=== PATIENT | male | born 1965 | race Caucasian/White ===

== ENCOUNTER 2018-10-18 07:07 | Outpatient (CLI) | payer BC, SELFPAY ==
[2018-10-18 08:58] LABS: Cholesterol 163 mg/dL (50-200); Glucose 99 mg/dL (70-100); HDL Cholesterol 35 mg/dL (40-60); LDL CHOLESTEROL 117 mg/dL (<100); Triglyceride 55 mg/dL (30-150)
== END 2018-10-18 07:27 ==
PROVIDERS: PCP General Practice; Visit Provider General Practice
DX: Z00.00 Encounter for general adult medical examination without abnormal findings (principal); Z13.220 Encounter for screening for lipoid disorders; Z13.1 Encounter for screening for diabetes mellitus
CPT/HCPCS: 36415; 80061; 82947; 83721

== ENCOUNTER 2018-11-28 00:45 | Outpatient (CLI) | payer BC, SELFPAY ==
--- NOTE | 2018-11-28 10:30 | MERGE_ITS ---
*[facility]* *[facility]* [address] [place] [address] Date of study: 11/28/2018 Transthoracic Echocardiography M-mode, complete 2D, complete spectral Doppler, and color Doppler *STUDY CONCLUSIONS* Summary: 1. Left ventricle: The cavity size was normal. The estimated ejection fraction was 60%. Diastolic parameters were normal. There was no evidence of elevated ventricular filling pressure by Doppler parameters. 2. Aortic valve: There was mild regurgitation. 3. Mitral valve: There was mild regurgitation. 4. Right ventricle: The cavity size was normal. Wall thickness was normal. Systolic function was normal. 5. Right atrium: The atrium was mildly dilated. 6. Atrial septum: No defect or patent foramen ovale was identified. 7. Pulmonary arteries: Pulmonary systolic pressure was in the range of 15mm Hg to 25mm Hg. 8. Inferior vena cava: The vessel was normal in size. The respirophasic diameter changes were in the normal range (greater than or equal to 50%), consistent with normal central venous pressure. *PATIENT PRESENTATION* Height: 175.3cm ((69in) ) S/D Pressure: 127 / 79 Weight: 83kg ((182.6lb) ) BSA: 2.03m^2 Test start time: 10:35 AM. Test stop time: 11:30 AM. ORDERING Merlin Oakley REFERRING Merlin Oakley PERFORMING Unknown PERFORMING [facility] [employer] RT Johnathan VerasR)(MARLEN)YOHAN *PROCEDURE DATA* Procedure information: The patient was identified by two identifiers. This study was interpreted by [facility]. Pertinent images and digital data are archived for permanent storage and are available for subsequent review. No prior study was available for comparison. Study status: Routine. Transthoracic echocardiography. M-mode, complete 2D, complete spectral Doppler, and color Doppler. A Transthoracic Echocardiogram was performed. Scanning was performed from the parasternal, apical, subcostal, and suprasternal notch acoustic windows. Images were obtained using an [id number] cardiac ultrasound machine. Image quality was adequate. Study completion: The patient tolerated the procedure well. History: PMH: LVH by echo 10/02. *CARDIAC ANATOMY* Left ventricle: The cavity size was normal. The estimated ejection fraction was 60%. The tissue Doppler parameters were normal. Diastolic parameters were normal. There was no evidence of elevated ventricular filling pressure by Doppler parameters. Aortic valve: Trileaflet. Doppler: There was no stenosis. There was mild regurgitation. VTI ratio of LVOT to aortic valve: 0.53. Valve area (VTI): 2cm^2. Indexed valve area (VTI): 1cm^2/m^2. Peak velocity ratio of LVOT to aortic valve: 0.52. Valve area (Vmax): 1.9cm^2. Indexed valve area (Vmax): 1cm^2/m^2. Mean velocity ratio of LVOT to aortic valve: 0.55. Valve area (Vmean): 2cm^2. Indexed valve area (Vmean): 1cm^2/m^2. Mean gradient (S): 9.1mm Hg. Peak gradient (S): 16.2mm Hg. Aorta: Aortic root: The aortic root was normal in size. Ascending aorta: The ascending aorta was normal in size. Mitral valve: Doppler: There was no evidence for stenosis. There was mild regurgitation. Valve area by pressure half-time: 3.8cm^2. Indexed valve area by pressure half-time: 1.9cm^2/m^2. Left atrium: The atrium was normal in size. Atrial septum: No defect or patent foramen ovale was identified. Right ventricle: The cavity size was normal. Wall thickness was normal. Systolic function was normal. Pulmonic valve: Doppler: There was no evidence for stenosis. There was mild regurgitation. Peak gradient (S): 4.2mm Hg. Tricuspid valve: Doppler: There was mild regurgitation. Pulmonary artery: Poorly visualized. Pulmonary systolic pressure was in the range of 15mm Hg to 25mm Hg. Right atrium: The atrium was mildly dilated. Pericardium: There was no pericardial effusion. Systemic veins: Inferior vena cava: The vessel was normal in size. The respirophasic diameter changes were in the normal range (greater than or equal to 50%), consistent with normal central venous pressure. Measurements Left ventricle Value Reference LV ID, ED, PLAX 4.9 cm 3.5 - 6.0 LV ID, ES, PLAX 3.7 cm 2.1 - 4.0 LV PW thickness, ED, PLAX 1.0 cm LV end-diastolic volume, 1-p A2C 109 ml LV ejection fraction, 1-p A2C 49 % LV end-diastolic volume, 1-p A4C 113 ml LV ejection fraction, 1-p A4C 48 % LV e', lateral 0.119 m/sec LV E/e', lateral 5 LV e', medial 0.102 m/sec LV E/e', medial 6 LV e', average 0.111 m/sec LV E/e', average 6 Ventricular septum Value Reference IVS thickness, ED, PLAX 1.1 cm LVOT Value Reference LVOT ID, A-P 2.2 cm LVOT area 3.7 cm^2 LVOT peak velocity, S 1.06 m/sec LVOT mean velocity, S 0.79 m/sec LVOT VTI, S 22.9 cm LVOT peak gradient, S 4.5 mm Hg LVOT mean gradient, S 2.8 mm Hg Stroke volume (SV), LVOT DP 84 ml Stroke index (SV/bsa), LVOT DP 42 ml/m^2 Aortic valve Value Reference Aortic valve peak velocity, S 2 m/sec Aortic valve mean velocity, S 1.44 m/sec Aortic valve VTI, S 43.0 cm Aortic mean gradient, S 9.1 mm Hg Aortic peak gradient, S 16.2 mm Hg VTI ratio, LVOT/AV 0.53 Aortic valve area, VTI 2 cm^2 Velocity ratio, peak, LVOT/AV 0.52 Aortic valve area, peak velocity 1.9 cm^2 Velocity ratio, mean, LVOT/AV 0.55 Aortic valve area, mean velocity 2 cm^2 Aortic valve area/bsa, mean velocity 1 cm^2/m^2 Aorta Value Reference Aortic root ID, ED 2.9 cm Ascending aorta ID, A-P, S 2.8 cm Left atrium Value Reference LA ID, A-P, ES 3.2 cm LA ID/bsa, A-P 1.6 cm/m^2 <=2.2 LA area, ES, A4C 18.6 cm^2 8.8 - 23.4 LA area, ES, A2C 19 cm^2 LA volume, ES, 2-p 53 ml LA volume/bsa, ES, 2-p 26 ml/m^2 LA/aortic root ratio 1.1 Mitral valve Value Reference Mitral E-wave peak velocity 0.64 m/sec Mitral A-wave peak velocity 0.7 m/sec Mitral deceleration time 201 ms 150 - 230 Mitral pressure half-time 58 ms Mitral E/A ratio, peak 0.91 Mitral valve area, PHT, DP 3.8 cm^2 Pulmonary veins Value Reference Pulmonary vein peak velocity, S 0.51 m/sec Pulmonary vein peak velocity, D 0.39 m/sec Pulmonary vein velocity ratio, peak, 1.3 S/D Pulmonary vein A-wave reversal peak 0.32 m/sec velocity Tricuspid valve Value Reference Tricuspid regurg peak velocity 2.2 m/sec Tricuspid peak RV-RA gradient 18.9 mm Hg Right atrium Value Reference RA area, ES, A4C (H) 19.7 cm^2 8.3 - 19.5 Pulmonic valve Value Reference Pulmonic peak gradient, S 4.2 mm Hg Legend: (L) and (H) jalil values outside specified reference range. I have personally reviewed the images and have reviewed and edited the reported findings. Electronically signed by Axel Desai MD 11/28/2018 16:48
== END 2018-11-28 01:05 ==
PROVIDERS: PCP General Practice; Visit Provider General Practice
DX: I08.0 Rheumatic disorders of both mitral and aortic valves; I51.7 Cardiomegaly
CPT/HCPCS: 93306

== ENCOUNTER 2019-01-30 07:06 | Day surgery (SDC) | payer BC, SELFPAY ==
--- NOTE | 2019-01-30 06:38 | W.COLOREPORT ---
Date of service: 01/30/19 Time of Service: 09:12 Colonoscopy Report Date of procedure: 01/30/19 Pre-op diagnosis general: Colon Cancer Screening Post-op diagnosis procedure note: other (Descending colon polyp) Procedure: Colonoscopy with polypectomy by cold forceps Surgeon: Verónica Harmon Anesthesia proc note operative: other (General/ ASA 1/Tawnya Navarro CRNA ) Estimated blood loss (mL): 3 Pathology: other (descending polyp) Complications: None Disposition: same day Indications: Mr. Godwin is a pleasant 53 year old male seen in the office for a screening colonoscopy. This will be his first colonoscopy. He has no family history of colon cancer. Risks, benefits and complications have been reviewed. Complications include but are not limited to bleeding, pain, perforation, missed small lesion/polyp, sore throat, aspiration and adverse reaction to the medications. Questions were entertained and answered to their satisfaction and they wished to proceed. No guarantees were given or implied. Prep: Miralax/Dulcolax Procedure Start Time: 09:12 Procedure End Time: :46 Retraction Time: 20 minutes Findings: One small < 1 cm polyp removed with forceps Procedure Description: After informed consent was obtained the patient was taken to the procedure room and placed in a left decubitous position. Monitors were applied and a time out was done. The patients name, date of , procedure, allergies to medications and metal in their body was reviewed. The patient was then sedated. Once sedated and comfortable a rectal exam was done. External exam was normal. Internal exam revealed a normal sphincter tone and no palpable masses. The prostate felt smooth. The scope was then introduced and retro-flexed. No internal hemorrhoids were identified, no masses or polyps. The scope was then advanced to the cecum with some difficulty. The patient kept bradying down into the 20's and had to be given Robinol. The colon was also tortuous. The TI and appendiceal orifice were identified. The prep was good. The scope was then slowly retracted over 20 minutes back into the rectum. Polyps were removed in the descending colon with a cold forceps. The scope was removed and the patient was woken up and taken back to Same day surgery in stable condition. The patient tolerated the procedure well and there were no immediate complications. Follow up: The patient should follow up in 3-5 years unless they develop changes in bowel habits or other new gastrointestinal complaints.
--- NOTE | 2019-01-30 06:40 | W.PM.DSUDISC ---
Discharge Plan Disposition Patient Disposition: HOME Condition: Good Discharge Details Reason For Visit: Colon CAncer Screening Attending Provider: Verónica Harmon Primary Care Provider: Merlin Oakley Home Meds and New Rx's Prescriptions: Continued multivitamin [One Daily Multivitamin] Tablet 1 tab PO DAILY RF: 0 Discontinued polyethylene glycol 3350 17 gram/dose powder 238 g PO ONCE Qty: 238 RF: 0 bisacodyl [Dulcolax (bisacodyl)] 5 mg tablet,delayed release (DR/EC) 5 mg PO ONCE Qty: 4 RF: 0 Discharge Instructions Instructions: Colonoscopy (DC), Colorectal Polyps (DC) Additional Instructions: Findings: one polyp Follow up: 3-5 years Please call if you develop: fevers >101.5 Nausea or Vomiting Abdominal pain that is not transient DAY SURGERY UNIT POST COLONOSCOPY INSTRUCTIONS 1. Because there will be medication in your system for the next 24 hours, you may feel a little sleepy. Your coordination will be affected. Therefore: a. Do not drive or operate dangerous equipment for 24 hours. b. Do not drink alcohol beverages for 24 hours (not even beer). c. Plan to go home and rest for the day. 2. Generally there are no restrictions on your activity after a day or so has gone by, but you may feel a bit fatigued for a few days. 3 After you arrive home you may have a light meal and return to a normal diet as you can tolerate it without feeling sick to your stomach. 4. After surgery, you may feel pain or discomfort. This should be only transient, but if it persists please contact your doctor. 5. If there are any questions regarding the findings of your procedure, please feel free to contact your doctor. 6. If you are unable to contact your doctor with a problem, contact the hospital at [phone]. 7. Continue all your regular medications unless directed otherwise. I understand the above instructions and have no questions. Signature of Patient or Responsible Adult Escort Date/Time Name of Responsible Adult Escort Signature of Nurse Date/Time Activity:: Activity as Tolerated Diet:: As Tolerated Discharge Orders Discharge Orders: Discharge Order (Routine); Ordered 01/30/19 Ordered By: Verónica Harmon DS: Diagnosis Discharge Diagnosis (1) S/P colonoscopy: Status: Acute (2) Colorectal polyp detected on colonoscopy: Status: Acute
[2019-01-30 07:19] VITALS: BP 129/85; PULSE 60; RESP 14; TEMP 34.8; O2SAT 14
--- NOTE | 2019-01-30 07:37 | BOWEL_PTH ---
PATIENT: Rogers Godwin LOC: [facility] U#:[id number] AGE/SX: 53/M ROOM: RE01/30/[address]: Verónica Harmon MD : [id number] BED: DIS: 01/30/2019 SPEC #: [id number] RECD: 01/30/19 12:54 STATUS: CHRIS REQ #: [id number] KEO: 01/30/19 07:[address]: Verónica Harmon DEPT: Surgical Specimen RECD BY: Yokasta Carty ENTERED: 01/30/19 12:55 SP TYPE: Bowel OTHR DR: Merlin Oakley Tissues: 1 - BIOPSY BOWEL Procedures: GROSS AND MICRO LEVEL 4 Comments: [id number]
[2019-01-30] MEDS: Lactated Ringers 1,000 ML 80 ML IV (07:57)
[2019-01-30 12:16] VITALS: BP 114/74; PULSE 61; RESP 14; TEMP 35.4; O2SAT 100
== END 2019-01-30 11:30 | disposition home or self-care (01) ==
LOC: SUR 07:07
PROVIDERS: PCP General Practice; Visit Provider Surgery
PROC: 0DJD8ZZ Inspection of Lower Intestinal Tract, Via Natural or Artificial Opening Endoscopic (ICD-10-PCS; CPT 45378; principal; 2019-01-30 08:30)
DX: Z12.11 Encounter for screening for malignant neoplasm of colon (principal); K63.5 Polyp of colon
CPT/HCPCS: 45380; 88305

== ENCOUNTER 2023-05-27 01:15 | Outpatient (CLI) | payer BC, SELFPAY ==
--- OUTSIDE RECORDS SUMMARY | 2023-05-27 01:16 | XMS_ITS | Patient Health Record ---
Author Name Unknown Organization [facility] Address [address] [place] [id number] Care Team Providers Care Developer Prover [employer] Name Role Phone Marlene Soliz Primary Care Provider [phone] Tarun ZULETA, Heide Unavailable Unavailable REASON FOR REFERRAL No Information MEDICATIONS Medication SIG (Take, Route, Frequency, Duration) Notes Start Date End Date Status Nystatin 078000 UNIT/GM 1 application to affected area Externally Twice a day PRN 02/12/2014 Not-Taking Nystatin-Triamcinolone 436867-3.1 UNIT/GM-% 1 application to affected area Externally Twice a day 06/04/2014 Not-Takin g Diflucan 100 MG 1 tablet Orally concepcion y for 7 day(s) 02/21/2015 Not-Taking Multivitamins 1 capsule PO once a day 08/31/2012 Active SOCIAL HISTORY Sex Assigned At : Social History Observation Description Sex Assigned At Unknown PROBLEMS Problem Type ICD Code Onset Dates Problem Status W/U Status Risk SNOMED Code Notes Problem Deviated nasal septum (470) Active confirmed 165535704 Problem Tinea (B35.9) Active confirmed 43989545 PLAN OF TREATMENT Pending Test Test Name Order Date ELECTROCARDIOGRAM, COMPLETE 09/29/2016 CMP([facility]) 08/31/2013 CMP([facility]) 08/31/2014 Lipid Profile ([facility]) 08/31/2014 Lipid Profile ([facility]) 08/31/2013 TSH([facility]) 08/31/2013 TSH([facility]) 08/31/2014 PSA([facility]) 08/31/2014 CBC with Differential (AUTO) 08/31/2014 CBC with Differential (AUTO) 08/31/2013 EXERCISE STRESS TEST 10/01/2016 Future Test Test Name Order Date CMP([facility]) 08/12/2017 Lipid Profile ([facility]) 08/12/2017 TSH([facility]) 08/12/2017 PSA([facility]) 08/12/2017 CBC with Differential (AUTO) 08/12/2017 Insurance Providers Payer Name Payer Address Payer Phone Subscriber Number Group Number Insured Name Patient Relationship to Insured Coverage Start Date Coverage End Date [facility] [address] [place] [address] [id number] Rogers Godwin Self - patient is the insured 6 MEDICAL (GENERAL) HISTORY Medical History History ICD Code 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
[2023-05-27 09:52] LABS: ALT 35 U/L (16-63); AST 30 U/L (15-37); Albumin 3.9 g/dL (3.4-5.0); Alkaline Phosphatase 72 U/L (46-116); Anion Gap 5.5 mmol/L (3-11); BUN 21 mg/dL (7-18); Bilirubin, Total 0.5 mg/dL (0.2-1.0); CO2 29.5 mmol/L (21.0-32.0); CREATININE 0.9 mg/dL (0.70-1.30); Calcium 9.2 mg/dL (8.5-10.1); Calculated LDL 151 mg/dL (<100); Chloride 104 mmol/L (98-107); Cholesterol 204 mg/dL (<200); Estimated GFR 100.24 (mL/min/1.73m2); Glucose 107 mg/dL (74-106); HDL Cholesterol 39 mg/dL (40-60); Potassium 4.9 mmol/L (3.5-5.1); Sodium 139 mmol/L (136-145); Total Protein 7.8 g/dL (6.4-8.2); Triglyceride 73 mg/dL (<150)
== END 2023-05-27 01:16 | disposition home or self-care (01) ==
LOC: LBO 01:15
PROVIDERS: Absent Provider Family Medicine; PCP Family Medicine; Visit Provider Family Medicine
DX: R03.0 Elevated blood-pressure reading, without diagnosis of hypertension (principal)
CPT/HCPCS: 36415; 80053; 80061